=== PATIENT | female | born 1935 ===

== ENCOUNTER 2017-11-06 11:56 | Inpatient (IN) | payer MEDICARE, MEDICAID ==
[2017-11-06] MEDS ORDERED: Sodium Chloride 0.9% 1,000 ML IV STA (12:25)
[2017-11-06] MEDS ORDERED: Iohexol 240 (50 ml) PO ONE (12:25)
--- NOTE | 2017-11-06 12:48 | ED PDOC ---
HPI: Abdomen Time Seen by Provider: 11/06/17 12:13 Chief Complaint (Nursing): Flu-like Symptoms Chief Complaint (Provider): vomiting, abdominal pain, weakness History Per: Patient History/Exam Limitations: no limitations Onset/Duration Of Symptoms: Days (4) Current Symptoms Are (Timing): Still Present Context: Food Location Of Pain/Discomfort: Periumbilical Quality Of Discomfort: Sharp Associated Symptoms: Chills, Nausea, Vomiting, Diarrhea, Loss Of Appetite, Back Pain Exacerbating Factors: None Alleviating Factors: None Last Bowel Movement: Today Additional Complaint(s): 81yo female c/o mid abdominal pain, vomiting and mild diarrhea with occassional BRBPR over last 4 days. Symptoms associated w/ malaise/ gen weakness and cough, headache. Denies fever. Denies urinary symptoms, syncope of neck pain. Past Medical History Reviewed: Historical Data, Nursing Documentation, Vital Signs Vital Signs: Last Vital Signs Temp 99 F 11/06/17 12:00 Pulse 120 H 11/06/17 12:00 Resp 20 11/06/17 12:00 BP 151/91 H 11/06/17 12:00 Pulse Ox 98 11/06/17 18:28 - Medical History PMH: Anemia, Arthritis, Bronchitis, CAD, Cardia Arrhythmia, Diverticulitis, Gastritis, Hiatal Hernia, HTN, Hypercholesterolemia, Hypothyroidism, Osteoporosis, Rheumatoid Arthritis Denies: HIV, Chronic Kidney Disease - Surgical History Surgical History: Coronary Stent, Denies: Cholecystectomy - Family History Family History: States: Unknown Family Hx - Living Arrangements Living Arrangements: With Family - Social History Current smoker - smoking cessation education provided: No - Home Medications Home Medications: Ambulatory Orders Medication Instructions Recorded Atorvastatin [Lipitor] 40 mg PO DAILY 07/12/14 Carvedilol [Coreg] 12.5 mg PO Q12 07/12/14 Fenofibric Acid (Choline) 135 mg PO DAILY 07/12/14 [Trilipix] amLODIPine [Norvasc] 5 mg PO DAILY 07/12/14 Hydroxychloroquine Sulfate 200 mg PO BID 10/27/15 [Plaquenil] Isosorbide Mononitrate [Imdur] 60 mg PO DAILY 10/27/15 Pantoprazole Sodium [Protonix] 40 mg PO DAILY 01/11/16 Alendronate [Fosamax] 70 mg PO SUN 11/10/16 Allopurinol [Zyloprim] 100 mg PO DAILY 11/10/16 Brompheniramine/Pseudoephed/Dm 5 ml PO Q4H PRN 11/10/16 [Bromfed Dm Cough Syrup] Colchicine [Colcrys] 0.6 mg PO DAILY 11/10/16 Diclofenac Sodium [Voltaren] 1 appl TD QID PRN 11/10/16 Levothyroxine [Synthroid] 50 mcg PO DAILY 11/10/16 Meclizine HCl 12.5 mg PO Q8H PRN 11/10/16 Meloxicam [Mobic] 7.5 mg PO DAILY 11/10/16 Multivitamin [Multi-Vitamin Daily] 1 tab PO DAILY 11/10/16 Prednisone [Basim] 5 mg PO DAILY 11/10/16 - Allergies Allergies/Adverse Reactions: Allergies Allergy/AdvReac Type Severity Reaction Status Date / Time No Known Allergies Allergy Verified 11/06/17 12:00 Review of Systems Constitutional: Positive for: Chills, Weakness, Malaise Eyes: Negative for: Vision Change ENT: Negative for: Ear Pain, Throat Pain Cardiovascular: Negative for: Chest Pain, Palpitations Respiratory: Positive for: Cough. Negative for: Shortness of Breath Gastrointestinal: Positive for: Nausea, Vomiting, Abdominal Pain, Diarrhea, Hematochezia. Negative for: Hematemesis Genitourinary Female: Negative for: Dysuria, Frequency Musculoskeletal: Positive for: Back Pain. Negative for: Neck Pain, Leg Pain Skin: Negative for: Rash, Lesions, Jaundice Neurological: Positive for: Headache, Dizziness. Negative for: Weakness, Numbness Psych: Negative for: Depression Physical Exam - Reviewed Nursing Documentation Reviewed: Yes Vital Signs Reviewed: Yes - Physical Exam Appears: Positive for: Well, Non-toxic, No Acute Distress Head Exam: Positive for: ATRAUMATIC, NORMAL INSPECTION, NORMOCEPHALIC Skin: Positive for: Normal Color, Warm, DRY Eye Exam: Positive for: EOMI, Normal appearance, PERRL ENT: Positive for: Normal ENT Inspection Neck: Positive for: Normal, Painless ROM Cardiovascular/Chest: Positive for: Regular Rate, Rhythm Respiratory: Positive for: CNT, Normal Breath Sounds Pulses-Radial (L): 2+ Pulses-Radial (R): 2+ Gastrointestinal/Abdominal: Positive for: Bowel Sounds, Soft, Tenderness (+ tender mid abdomen) Back: Positive for: Normal Inspection Extremity: Positive for: Normal ROM Neurologic/Psych: Positive for: Alert, manufacturing engineering technologist II-XII (intact), Oriented. Negative for: Motor/Sensory Deficits - Laboratory Results Result Diagrams: 11/06/17 13:31 11/06/17 13:31 - ECG O2 Sat by Pulse Oximetry: 98 Medical Decision Making Medical Decision Making: workup for abd pain/ voimiting/ BRBPR initiated labs reviewed, persistent mildly worsened anemia WBC normal CT abd pelv Accession No. 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 COMPARISON: 01/11/2016. CT abdomen and pelvis. TECHNIQUE: Contrast dose: 75 cc Visipaque 320. Radiation dose: Total exam DLP = 725.24 mGy-cm. This CT exam was performed using one or more of the following dose reduction techniques: Automated exposure control, adjustment of the mA and/or kV according to patient size, and/or use of iterative reconstruction technique. FINDINGS: LOWER THORAX: Stable hiatal hernia. LIVER: Hepatic steatosis. No focal masses. No intrahepatic bile duct dilatation or perihepatic ascites. GALLBLADDER AND BILE DUCTS: Unremarkable. PANCREAS: Unremarkable. No gross lesion or ductal dilatation. SPLEEN: Unremarkable. ADRENALS: Unremarkable. No mass. KIDNEYS AND URETERS: Unremarkable. No hydronephrosis. No solid mass. VASCULATURE: Unremarkable. No aortic aneurysm. BOWEL: Severe pain colitis. This is better visualized in the ascending and transverse colon due to the presence of oral contrast. However the descending colon, sigmoid and rectum are also affected. In addition there is considerable diverticular disease primarily affecting the left ryan colon most notably the sigmoid region. A component of acute diverticulitis therefore should be considered as a concurrent acute inflammatory process. Anterior abdominal wall hernia containing an affected loop of transverse colon without evidence of incarceration. Similar finding was seen on the CT scan of the abdomen and pelvis 01/11/2016. APPENDIX: No abnormalities to suggest acute appendicitis. No right lower quadrant inflammatory processes identified. PERITONEUM: Unremarkable. No free fluid. No free air. LYMPH NODES: Unremarkable. No enlarged lymph nodes. BLADDER: Unremarkable. REPRODUCTIVE: Unremarkable. BONES: No acute fracture. OTHER FINDINGS: None. IMPRESSION: Severe colitis extending from the cecum to the rectum. Additional benign and/or incidental findings described above. Pt prior saw Dr Husain but patient states prefers new GI specialist. D/w Dr Dia requested Dr Mazariegos group, consult requested. Pt has appt upcoming Nov GI Dr Coleman? Cipro/flagyl IV initiated Disposition - Clinical Impression Clinical Impression: Pancolitis, Abdominal pain, Rectal bleeding - Patient ED Disposition Is Patient to be Admitted: Yes Counseled Patient/Family Regarding: Studies Performed, Diagnosis - Disposition Disposition: Routine/Home Disposition Time: 17:01 Condition: FAIR - Pt Status Changed To: Hospital Disposition Of: Inpatient - Admit Certification Admit to Inpatient:: After my assessment, the patient will require hospitalization for at least two midnights. This is because of the severity of symptoms shown, intensity of services needed, and/or the medical risk in this patient being treated as an outpatient. - POA Present On Arrival: None
[2017-11-06] MEDS ORDERED: Iohexol 240 (50 ml) ONE (13:32)
[2017-11-06 13:35] LABS: BASO % 0.5 % (0.0-2.0); EOS % 0.6 % (0.0-4.0); HEMOGLOBIN 10.4 g/dL (12.0-16.0); LYMPH # 0.9 K/uL (1.0-4.3); LYMPH % 10.7 % (20.0-40.0); MEAN CELL VOLUME 90.3 fl (81.0-99.0); MEAN CORPUSCULAR HEMOGLOBIN 29.6 pg (27.0-31.0); MEAN CORPUSCULAR HGB CONC 32.8 g/dL (33.0-37.0); MEAN PLATELET VOLUME 6.8 fl (7.2-11.7); MONO # 0.8 K/uL (0.0-0.8); MONO % 9.3 % (0.0-10.0); NEUT # 6.4 K/uL (1.8-7.0); NEUT % 78.9 % (50.0-75.0); RBC 3.52 Mil/uL (3.80-5.20); WHITE BLOOD COUNT 8.1 K/uL (4.8-10.8)
[2017-11-06 13:46] LABS: ALBUMIN 2.9 g/dL (3.5-5.0); ALT/SGPT 27 U/L (9-52); AST/SGOT 26 U/L (14-36); BLOOD UREA NITROGEN 16 mg/dl (7-17); GFR AFRICAN-AMERICAN > 60; GFR NON-AFRICAN AMERICAN 53
[2017-11-06 13:54] LABS: ALB/GLOB RATIO 0.8 (1.0-2.1)
[2017-11-06] MEDS ORDERED: Sodium Chloride 0.9% 50 ML IV ONE ×2 (13:59→16:16)
[2017-11-06] MEDS ORDERED: Iohexol 300 100 ML IJ ONE ×2 (13:59→16:16)
--- NOTE | 2017-11-06 14:12 | RAD ---
HISTORY: Cough a COMPARISON: 07/04/2017. TECHNIQUE: Chest PA and lateral FINDINGS: LUNGS: Hyperinflation, manifestations of COPD. No active pulmonary disease. PLEURA: No significant pleural effusion identified. No pneumothorax apparent. CARDIOVASCULAR: Normal. OSSEOUS STRUCTURES: No significant abnormalities. Moderate kyphosis. VISUALIZED UPPER ABDOMEN: Normal. OTHER FINDINGS: Small hiatal hernia. IMPRESSION: No active disease. No significant interval change compared to the prior examination(s).
[2017-11-06] MEDS ORDERED: Iodixanol 320 MG/ML 100 ML BOTTLE IV ONE (16:31)
--- NOTE | 2017-11-06 16:40 | CARD ---
APPROVED REPORT EKG Measurement Heart [id number] [id number] <Conclusion> Normal sinus rhythm Pulmonary disease pattern Left anterior fascicular block Left ventricular hypertrophy with QRS widening Abnormal ECG
--- NOTE | 2017-11-06 17:09 | CT ---
PROCEDURE: CT Abdomen and Pelvis with contrast HISTORY: Lower abdominal pain. COMPARISON: 01/11/2016. CT abdomen and pelvis. TECHNIQUE: Contrast dose: 75 cc Visipaque 320. Radiation dose: Total exam DLP = 725.24 mGy-cm. This CT exam was performed using one or more of the following dose reduction techniques: Automated exposure control, adjustment of the mA and/or kV according to patient size, and/or use of iterative reconstruction technique. FINDINGS: LOWER THORAX: Stable hiatal hernia. LIVER: Hepatic steatosis. No focal masses. No intrahepatic bile duct dilatation or perihepatic ascites. GALLBLADDER AND BILE DUCTS: Unremarkable. PANCREAS: Unremarkable. No gross lesion or ductal dilatation. SPLEEN: Unremarkable. ADRENALS: Unremarkable. No mass. KIDNEYS AND URETERS: Unremarkable. No hydronephrosis. No solid mass. VASCULATURE: Unremarkable. No aortic aneurysm. BOWEL: Severe pain colitis. This is better visualized in the ascending and transverse colon due to the presence of oral contrast. However the descending colon, sigmoid and rectum are also affected. In addition there is considerable diverticular disease primarily affecting the left ryan colon most notably the sigmoid region. A component of acute diverticulitis therefore should be considered as a concurrent acute inflammatory process. Anterior abdominal wall hernia containing an affected loop of transverse colon without evidence of incarceration. Similar finding was seen on the CT scan of the abdomen and pelvis 01/11/2016. APPENDIX: No abnormalities to suggest acute appendicitis. No right lower quadrant inflammatory processes identified. PERITONEUM: Unremarkable. No free fluid. No free air. LYMPH NODES: Unremarkable. No enlarged lymph nodes. BLADDER: Unremarkable. REPRODUCTIVE: Unremarkable. BONES: No acute fracture. OTHER FINDINGS: None. IMPRESSION: Severe colitis extending from the cecum to the rectum. Additional benign and/or incidental findings described above.
[2017-11-06] MEDS ORDERED: Ciprofloxacin 400mg/200ml D5W 400 MG/200 ML BAG IVPB STA (17:28)
[2017-11-06] MEDS ORDERED: Sodium Chloride 0.9% 100 ML IV STA (18:01)
[2017-11-06] MEDS ORDERED: metroNIDAZOLE 500mg/100ml NS 100 ML IVPB ONE (19:24)
[2017-11-06] MEDS ORDERED: HYDROmorphone 0.5 mg/0.5 ml ISec IVP PRN (22:48)
[2017-11-06] MEDS: Dextrose 5%/0.9% NS 1,000 ML IV SCH (23:23)
[2017-11-07] MEDS ORDERED: metroNIDAZOLE 500mg/100ml NS 100 ML IVPB SCH (01:00)
[2017-11-07] MEDS: Levothyroxine 50 MCG TAB PO SCH (07:19)
--- NOTE | 2017-11-07 07:46 | CP.PCM.CON ---
<RusselAbundio - Last Filed: 11/07/17 13:19> History of Present Illness - History of Present Illness History of Present Illness: PGY4 Initial GI Consult Note Blanquita Baez is a 82F w/ hx of CAD s/p stent?, HTN, HL, Hypothyroid, OA, and diverticulitis who presents to the ER with complaints of diarrhea, abd pain. She states that he symptoms started 3 days ago. He notes diarrhea with some formed stool and denied any mixed blood or mucus. She states that the end when she was wiping there was blood on toilet tissue. She noted abd pain location in the LLQ which started with the diarrhea. She noted that it radiated to the umbilicus. She states that the pain and diarrhea wer intermittent and returned the following day. Her symptoms gradually worsened and she presented to the ER for further evaluation. In the ER, she had a CT abd/Pelv which revealed pancolitis from the cecum to the rectum and found to have severe diverticulosis. She was started on Cipro and flagyl. She notes 3 colonoscopy in the past. Her last colonoscopy was on 01/09/17 which revealed a large polyp. She has had multiple admission in the past for diverticulitis on 01/04 and 11/07. 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 She denies any fever, chills or diaphoresis. Her last Bm was this morning but small and formed. PMHx: CAD s/p Stent, HTN. HL, hypothyroid, OA, diverticulitis PSHx: colon tumor resection, umbilical hernia repair at the age of 2 Social hx: denies smoking, etoh and illicit drug use End hx: last colonoscopy 12/2015: large tumor resection (path unknown), 2 more previous colonosocies as per pt ROS: 12-point ROS conducted, neg other than above Past Patient History - Tetanus Immunizations Tetanus Immunization: Unknown - Past Medical History & Family History Past Medical History?: Yes - Past Social History Smoking Status: Never Smoked - CARDIAC Hx Cardiac Disorders: Yes - PULMONARY Hx Bronchitis: Yes - NEUROLOGICAL Hx Neurological Disorder: Yes Hx Dizziness: Yes - HEENT Hx HEENT Problems: Yes Hx Cataracts: Yes (with surgery OU) - RENAL Hx Chronic Kidney Disease: No - ENDOCRINE/METABOLIC Hx Hypothyroidism: Yes - HEMATOLOGICAL/ONCOLOGICAL Hx Anemia: Yes Hx Human Immunodeficiency Virus (HIV): No - INTEGUMENTARY Hx Dermatological Problems: No - MUSCULOSKELETAL/RHEUMATOLOGICAL Hx Falls: No - GASTROINTESTINAL Hx Diverticulitis: Yes Hx Gastritis: Yes - GENITOURINARY/GYNECOLOGICAL Hx Genitourinary Disorders: No - PSYCHIATRIC Hx Substance Use: No - SURGICAL HISTORY Hx Cholecystectomy: No Hx Coronary Stent: Yes - ANESTHESIA Hx Anesthesia: Yes Hx Anesthesia Reactions: No Hx Malignant Hyperthermia: No Meds Allergies/Adverse Reactions: Allergies Allergy/AdvReac Type Severity Reaction Status Date / Time No Known Allergies Allergy Verified 11/06/17 12:00 - Medications Medications: Current Medications Acetaminophen (Tylenol 325mg Tab) 650 mg PO Q6 PRN PRN Reason: Fever >100.4 F Allopurinol (Zyloprim) 100 mg PO DAILY [facility] Amlodipine Besylate (Norvasc) 5 mg PO DAILY [facility] Atorvastatin Calcium (Lipitor) 40 mg PO DAILY [facility] Carvedilol (Coreg) 12.5 mg PO Q12 [facility] Colchicine (Colocrys) 0.6 mg PO DAILY [facility] Hydromorphone HCl (Dilaudid) 0.5 mg IVP PRN PRN PRN Reason: Pain, moderate (4-7) Hydroxychloroquine Sulfate (Plaquenil) 200 mg PO BID [facility] Ciprofloxacin (Cipro 400mg/200ml Dsw) 400 mg in 200 mls @ 200 mls/hr IVPB Q12 [facility] PRN Reason: Protocol Dextrose/Sodium Chloride (Dextrose 5%/0.9% Ns 1000 Ml) 1,000 mls @ 100 mls/hr IV .Q10H [facility] Stop: 11/07/17 22:47 Last Admin: 11/06/17 23:23 Dose: 100 mls/hr Metronidazole (Flagyl 500mg/100ml Ns) 100 mls @ 100 mls/hr IVPB Q8 [facility] PRN Reason: Protocol Isosorbide Mononitrate (Imdur) 60 mg PO DAILY [facility] Levothyroxine Sodium (Synthroid) 50 mcg PO DAILY@0630 [facility] Last Admin: 11/07/17 07:19 Dose: 50 mcg Multivitamins/Minerals (Therapeutic-M Tab) 1 tab PO DAILY [facility] Ondansetron HCl (Zofran Inj) 4 mg IVP Q6 PRN PRN Reason: Nausea/Vomiting Pantoprazole Sodium (Protonix Ec Tab) 40 mg PO DAILY [facility] Prednisone (Prednisone Tab) 5 mg PO DAILY [facility] Physical Exam - Constitutional Appears: Well, No Acute Distress - Head Exam Head Exam: ATRAUMATIC, NORMOCEPHALIC - Eye Exam Eye Exam: Normal appearance - ENT Exam ENT Exam: Mucous Membranes Moist, Normal Exam - Respiratory Exam Respiratory Exam: Clear to Auscultation Bilateral, NORMAL BREATHING PATTERN. absent: Rales, Rhonchi, Wheezes, Respiratory Distress - Cardiovascular Exam Cardiovascular Exam: REGULAR RHYTHM, +S1, +S2 - GI/Abdominal Exam GI & Abdominal Exam: Normal Bowel Sounds, Soft - Extremities Exam Extremities exam: Negative for: joint swelling, pedal edema - Neurological Exam Neurological exam: Alert, Oriented x3 - Psychiatric Exam Psychiatric exam: Normal Affect, Normal Mood - Skin Skin Exam: Dry, Intact, Normal Color, Warm Results - Vital Signs Recent Vital Signs: Last Vital Signs Temp 99.1 F 11/06/17 23:39 Pulse 94 H 11/06/17 23:39 Resp 18 11/06/17 23:39 BP 143/78 11/06/17 23:39 Pulse Ox 97 11/06/17 23:39 - Labs Result Diagrams: 11/07/17 09:33 11/07/17 09:33 Labs: Laboratory Results - last 24 hr 11/06/17 11/06/17 13:31 13:31 WBC 8.1 RBC 3.52 L Hgb 10.4 L Hct 31.8 L MCV 90.3 MCH 29.6 MCHC 32.8 L RDW 16.0 H Plt Count 267 MPV 6.8 L Neut % (Auto) 78.9 H Lymph % (Auto) 10.7 L [place] % (Auto) 9.3 Eos % (Auto) 0.6 Baso % (Auto) 0.5 Neut # 6.4 Lymph # 0.9 L [place] # 0.8 Eos # 0.0 Baso # 0.0 Sodium 139 Potassium 4.6 Chloride 105 Carbon Dioxide 25 Anion Gap 14 BUN 16 Creatinine 1.0 Est GFR ( Amer) > 60 Est GFR (Non-Af Amer) 53 Random Glucose 73 Calcium 9.0 Total Bilirubin 0.8 AST 26 ALT 27 Alkaline Phosphatase 91 Total Protein 6.9 Albumin 2.9 L D Globulin 3.9 Albumin/Globulin Ratio 0.8 L Assessment & Plan - Assessment and Plan (Free Text) Assessment: Blanquita Sasha is 82F w/ hx of diverticulitis, CAD s/p stents, HTN, HL who presents with diarrhea and abd pain. CT abd/Pelv revealed franco colitis from cecum to rectum, severe diverticulosis in the sigmoid. Franco colitis, Ddx: IBD,ischemic colitis, infectous, diverticulitis Abd pain likely 2/2 above Diarrhea (resolved) Hx of diverticulitis Umbical Hernia Plan: -Continue IV fluids -continue cipro and flagyl -recommend stool culture, r/o c. diff, fecal calprotectin -CT abd reviewed -Maintain MAP >65 -recommend CT angio to eval mesenteric arteries to r/o ischemic coliti -Maintain hgb > 8 -keep NPO for now will D/W Dr. Acevedo. <Marleny Acevedo MD - Last Filed: 11/07/17 14:26> Meds - Medications Medications: Current Medications Acetaminophen (Tylenol 325mg Tab) 650 mg PO Q6 PRN PRN Reason: Fever >100.4 F Allopurinol (Zyloprim) 100 mg PO DAILY [facility] Last Admin: 11/07/17 09:44 Dose: 100 mg Amlodipine Besylate (Norvasc) 5 mg PO DAILY [facility] Last Admin: 11/07/17 09:41 Dose: 5 mg Atorvastatin Calcium (Lipitor) 40 mg PO DAILY [facility] Last Admin: 11/07/17 09:44 Dose: 40 mg Carvedilol (Coreg) 12.5 mg PO Q12 [facility] Last Admin: 11/07/17 09:42 Dose: 12.5 mg Colchicine (Colocrys) 0.6 mg PO DAILY [facility] Last Admin: 11/07/17 09:41 Dose: 0.6 mg Hydromorphone HCl (Dilaudid) 0.5 mg IVP PRN PRN PRN Reason: Pain, moderate (4-7) Hydroxychloroquine Sulfate (Plaquenil) 200 mg PO BID [facility] Last Admin: 11/07/17 09:43 Dose: 200 mg Ciprofloxacin (Cipro 400mg/200ml Dsw) 400 mg in 200 mls @ 200 mls/hr IVPB Q12 [facility] PRN Reason: Protocol Last Admin: 11/07/17 09:38 Dose: 200 mls/hr Dextrose/Sodium Chloride (Dextrose 5%/0.9% Ns 1000 Ml) 1,000 mls @ 100 mls/hr IV .Q10H [facility] Stop: 11/07/17 22:47 Last Admin: 11/07/17 09:44 Dose: 100 mls/hr Metronidazole (Flagyl 500mg/100ml Ns) 100 mls @ 100 mls/hr IVPB Q8 [facility] PRN Reason: Protocol Last Admin: 11/07/17 09:39 Dose: 100 mls/hr Isosorbide Mononitrate (Imdur) 60 mg PO DAILY [facility] Last Admin: 11/07/17 09:43 Dose: 60 mg Levothyroxine Sodium (Synthroid) 50 mcg PO DAILY@0630 [facility] Last Admin: 11/07/17 07:19 Dose: 50 mcg Multivitamins/Minerals (Therapeutic-M Tab) 1 tab PO DAILY [facility] Last Admin: 11/07/17 09:41 Dose: 1 tab Ondansetron HCl (Zofran Inj) 4 mg IVP Q6 PRN PRN Reason: Nausea/Vomiting Pantoprazole Sodium (Protonix Ec Tab) 40 mg PO DAILY [facility] Last Admin: 11/07/17 09:42 Dose: 40 mg Prednisone (Prednisone Tab) 5 mg PO DAILY [facility] Last Admin: 11/07/17 09:43 Dose: 5 mg Results - Vital Signs Recent Vital Signs: Last Vital Signs Temp 98.2 F 11/07/17 08:30 Pulse 79 11/07/17 09:42 Resp 20 11/07/17 08:30 BP 145/78 11/07/17 09:42 Pulse Ox 98 11/07/17 08:30 - Labs Result Diagrams: 11/07/17 09:33 11/07/17 09:33 Labs: Laboratory Results - last 24 hr 11/07/17 11/07/17 09:33 09:33 WBC 7.2 RBC 3.34 L Hgb 10.0 L Hct 30.4 L MCV 91.0 MCH 29.9 MCHC 32.9 L RDW 16.1 H Plt Count 265 MPV 6.6 L Neut % (Auto) 75.3 H Lymph % (Auto) 11.5 L [place] % (Auto) 11.5 H Eos % (Auto) 1.4 Baso % (Auto) 0.3 Neut # 5.4 Lymph # 0.8 L [place] # 0.8 Eos # 0.1 Baso # 0.0 Sodium 140 Potassium 3.5 L Chloride 107 Carbon Dioxide 25 Anion Gap 12 BUN 14 Creatinine 0.9 Est GFR ( Amer) > 60 Est GFR (Non-Af Amer) 60 Random Glucose 90 Calcium 8.3 L Attending/Attestation - Attestation I have personally seen and examined this patient.: Yes I have fully participated in the care of the patient.: Yes I have reviewed all pertinent clinical information: Yes Notes (Text): 11/07/17 14:21 Patient seen with GI fellow at [facility]. This is a 82 yr old F w/ hx of diverticulitis, CAD s/p stents, HTN, HL who presents with diarrhea and abdominal pain. CT abd/Pelv revealed franco colitis from cecum to rectum, severe diverticulosis in the sigmoid. Previous admissions with similar complains s/p colonoscopy 2 years ago that sowed diverticulosis. Franco colitis differential may be related to ischemic etiology hence will coordinate CT angiogram. Physical exam is benign and no guarding, rebound. Will continue supportive care, send stool infectious work up and continue antibiotics. Diet as tolerated. Will follow
[2017-11-07 08:31] VITALS: RESP 20
[2017-11-07 09:38] LABS: BASO % 0.3 % (0.0-2.0); EOS # 0.1 K/uL (0.0-0.7); EOS % 1.4 % (0.0-4.0); LYMPH # 0.8 K/uL (1.0-4.3); LYMPH % 11.5 % (20.0-40.0); MEAN CORPUSCULAR HEMOGLOBIN 29.9 pg (27.0-31.0); MEAN CORPUSCULAR HGB CONC 32.9 g/dL (33.0-37.0); MEAN PLATELET VOLUME 6.6 fl (7.2-11.7); MONO # 0.8 K/uL (0.0-0.8); MONO % 11.5 % (0.0-10.0); NEUT # 5.4 K/uL (1.8-7.0); NEUT % 75.3 % (50.0-75.0); RBC 3.34 Mil/uL (3.80-5.20); RED CELL DISTRIBUTION WIDTH 16.1 % (11.5-14.5); WHITE BLOOD COUNT 7.2 K/uL (4.8-10.8)
[2017-11-07] MEDS: Ciprofloxacin 400mg/200ml D5W 400 MG/200 ML BAG IVPB SCH ×2 (09:38→21:21)
[2017-11-07] MEDS: metroNIDAZOLE 500mg/100ml NS 100 ML IVPB SCH ×2 (09:39→18:45)
[2017-11-07] MEDS: Multivitamin With Minerals Tab PO SCH (09:41)
[2017-11-07] MEDS: Pantoprazole 40 mg EC Tab PO SCH (09:42)
[2017-11-07] MEDS: Dextrose 5%/0.9% NS 1,000 ML IV SCH (09:44)
[2017-11-07 10:04] LABS: BLOOD UREA NITROGEN 14 mg/dl (7-17); CALCIUM 8.3 mg/dL (8.4-10.2); GFR AFRICAN-AMERICAN > 60; GFR NON-AFRICAN AMERICAN 60
[2017-11-07] MEDS ORDERED: Potassium Chloride 20 mEq ER Tab PO ONE (14:45)
[2017-11-07] MEDS ORDERED: Iodixanol 320 MG/ML 100 ML BOTTLE IV ONE (14:46)
[2017-11-07] MEDS ORDERED: Sodium Chloride 0.9% 50 ML IV ONE (14:46)
[2017-11-07 15:37] LABS: SQUAMOUS EPITHIAL 2 /hpf (0-5); URINE BILIRUBIN NEGATIVE (NEGATIVE); URINE BLOOD NEGATIVE (NEGATIVE); URINE CLARITY SLIGHTY-CLOUDY (Clear); URINE COLOR YELLOW (YELLOW); URINE GLUCOSE (UA) 50 mg/dL (Normal); URINE LEUKOCYTE ESTERASE NEG Leu/uL (Negative); URINE NITRATE NEGATIVE (NEGATIVE); URINE PROTEIN NEGATIVE (NEGATIVE); URINE UROBILINOGEN 0.2-1.0 mg/dL (0.2-1.0)
--- NOTE | 2017-11-07 16:49 | CT ---
PROCEDURE: CT Abdomen with and without intravenous contrast HISTORY: Severe colitis, r/o ischemic colitis COMPARISON: November 06, 2017. TECHNIQUE: Axial images of the abdomen from lung bases to iliac crest with and without intravenous contrast enhancement. Coronal and sagittal reformats generated. Oral contrast also administered. Intravenous contrast Dose: 99 cc Visipaque 320 Radiation dose: Total exam DLP = 1848.87 mGy-cm. This CT exam was performed using one or more of the following dose reduction techniques: Automated exposure control, adjustment of the mA and/or kV according to patient size, and/or use of iterative reconstruction technique. FINDINGS: LOWER THORAX: Stable hiatal hernia. LIVER: Hepatic steatosis. No focal masses. No intrahepatic bile duct dilatation or perihepatic ascites. GALLBLADDER AND BILE DUCTS: Vicarious excretion of contrast in the gallbladder. The PANCREAS: Unremarkable. No gross lesion or ductal dilatation. SPLEEN: Unremarkable. ADRENALS: Unremarkable. No mass. KIDNEYS AND URETERS: Unremarkable. No hydronephrosis. No solid mass. Residual contrast in the collecting systems on the unenhanced component. No focal abnormalities are apparent on the contrast enhanced component of this study. Patent renal arteries and veins. VASCULATURE: Unremarkable. No aortic aneurysm. Patent celiac axis, superior mesenteric artery and branch vessels. No evidence of stenosis or dissection. BOWEL: Diffuse colitis again identified without appreciable interval change. Mild dilatation of proximal small bowel consistent with ileus rather than obstruction. Diverticulosis primarily affecting sigmoid colon, a colitis also apparent in the affected sigmoid. APPENDIX: Normal appendix. PERITONEUM: Unremarkable. No free fluid. No free air. LYMPH NODES: Unremarkable. No enlarged lymph nodes. BLADDER: Unremarkable. REPRODUCTIVE: Unremarkable. BONES: No acute fracture. OTHER FINDINGS: None. IMPRESSION: Caro colitis again identified without appreciable interval change. Non aneurysmal abdominal aorta and unremarkable iliac vessels. No evidence of stenoses at the origin of the celiac axis, SMA. No evidence of thrombotic disease or occlusion of any of the major visceral branches.
[2017-11-08] MEDS: metroNIDAZOLE 500mg/100ml NS 100 ML IVPB SCH ×3 (00:07→16:28)
--- NOTE | 2017-11-08 03:53 | HP ---
HISTORY OF PRESENT ILLNESS: This is an 82-year-old female with history of multiple medical problems, presented to emergency room with symptoms of vomiting, nausea and diarrhea that has been intermittent for the last 2 weeks prior to this admission. Patient admitted also for mid abdominal pain. The patient's symptoms were associated with generalized weakness. Patient denied to have any fever or urinary symptoms. Other review of systems is negative. ALLERGIES: NO KNOWN ALLERGY. MEDICATIONS: As per MAR. PAST MEDICAL HISTORY: Positive for hypertension, osteoarthritis, gouty arthritis, hypothyroidism, atherosclerotic cardiovascular disease. SOCIAL HISTORY: No history of smoking, EtOH or substance abuse. FAMILY HISTORY: Noncontributory. PHYSICAL EXAMINATION: GENERAL: Patient is in bed, comfortable at the time of this examination. VITAL SIGNS: Blood pressure 145/78, temperature 98.2, respiratory rate 20 and pulse 79. HEENT: Pupils equal, reactive to light. Normal-appearing mucosa of the conjunctivae, oropharynx and nasal membrane mucosa. NECK: Supple. No JVD. No carotid bruit. No lymph node. No thyromegaly. CHEST AND LUNGS: Bilateral symmetrical expansion. Good air exchange. No rales, no rhonchi. CARDIOVASCULAR SYSTEM: PMI not localized. S1, S2. No additional sounds. ABDOMEN: Normoactive bowel sounds. No tenderness. No organomegaly. No masses. EXTREMITIES: No cyanosis, no clubbing, no edema. CENTRAL NERVOUS SYSTEM: Alert, awake, oriented x3. No neurological deficit could be appreciated. ASSESSMENT: 1. Pancolitis as it was shown in the computed axial tomography scan. 2. Hypertension. 3. Hypothyroidism. 4. Gouty arthritis. 5. Osteoarthritis. PLAN: Continue Cipro and Flagyl and probiotic, and GI consult and surgical consult and follow their recommendations. Discussed patient's condition with Dr. Acevedo who also ordered CT angiogram. Annita MD [place]
[2017-11-08 06:20] LABS: BLOOD UREA NITROGEN 14 mg/dl (7-17); CALCIUM 7.9 mg/dL (8.4-10.2); GFR AFRICAN-AMERICAN > 60; GFR NON-AFRICAN AMERICAN 60
[2017-11-08] MEDS: Levothyroxine 50 MCG TAB PO SCH (06:20)
[2017-11-08 08:09] LABS: BASO % 0.3 % (0.0-2.0); EOS # 0.1 K/uL (0.0-0.7); HEMOGLOBIN 8.5 g/dL (12.0-16.0); LYMPH # 0.7 K/uL (1.0-4.3); LYMPH % 9.1 % (20.0-40.0); MEAN CELL VOLUME 90.7 fl (81.0-99.0); MEAN CORPUSCULAR HEMOGLOBIN 29.9 pg (27.0-31.0); MEAN PLATELET VOLUME 7.3 fl (7.2-11.7); MONO % 13.5 % (0.0-10.0); NEUT # 5.6 K/uL (1.8-7.0); NEUT % 76.1 % (50.0-75.0); NRBC % 0.1 % (0.0-0.0); PLATELET COUNT 233 K/uL (130-400); RBC 2.85 Mil/uL (3.80-5.20); RED CELL DISTRIBUTION WIDTH 15.7 % (11.5-14.5); WHITE BLOOD COUNT 7.4 K/uL (4.8-10.8)
[2017-11-08 08:30] LABS: ALT/SGPT 26 U/L (9-52); AST/SGOT 25 U/L (14-36); BILIRUBIN,DIRECT 0.4 mg/ml (0.0-0.4)
[2017-11-08] MEDS: Multivitamin With Minerals Tab PO SCH (08:32)
[2017-11-08] MEDS: Pantoprazole 40 mg EC Tab PO SCH (08:32)
[2017-11-08 08:58] LABS: ALB/GLOB RATIO 0.6 (1.0-2.1); ALBUMIN 2.1 g/dL (3.5-5.0)
[2017-11-08] MEDS: Ciprofloxacin 400mg/200ml D5W 400 MG/200 ML BAG IVPB SCH (09:52)
--- NOTE | 2017-11-08 09:53 | CP.PCM.PN ---
<Abundio Goode - Last Filed: 11/08/17 09:54> Subjective - Date & Time of Evaluation Date of Evaluation: 11/08/17 Time of Evaluation: 09:45 - Subjective Subjective: PGY4 GI Follow-up Pt seen and examined bedside Pt had 1 BM yesterday and in the AM tolerated Liquid diet Denies any abd pain denies any fever, chills or diaphoresis No overnight events ROS: 10 point ROS conducted, neg other than above Objective - Vital Signs/Intake and Output Vital Signs (last 24 hours): Temp Pulse Resp BP Pulse Ox 99.1 F 81 20 128/75 96 11/08/17 08:45 11/08/17 08:45 11/08/17 08:45 11/08/17 08:45 11/08/17 08:45 - Medications Medications: Current Medications Acetaminophen (Tylenol 325mg Tab) 650 mg PO Q6 PRN PRN Reason: Fever >100.4 F Allopurinol (Zyloprim) 100 mg PO DAILY [facility] Last Admin: 11/08/17 08:33 Dose: 100 mg Amlodipine Besylate (Norvasc) 5 mg PO DAILY [facility] Last Admin: 11/08/17 08:32 Dose: 5 mg Atorvastatin Calcium (Lipitor) 40 mg PO DAILY [facility] Last Admin: 11/08/17 08:32 Dose: 40 mg Carvedilol (Coreg) 12.5 mg PO Q12 [facility] Last Admin: 11/08/17 08:31 Dose: 12.5 mg Colchicine (Colocrys) 0.6 mg PO DAILY [facility] Last Admin: 11/08/17 08:31 Dose: 0.6 mg Hydromorphone HCl (Dilaudid) 0.5 mg IVP PRN PRN PRN Reason: Pain, moderate (4-7) Hydroxychloroquine Sulfate (Plaquenil) 200 mg PO BID [facility] Last Admin: 11/08/17 08:32 Dose: 200 mg Ciprofloxacin (Cipro 400mg/200ml Dsw) 400 mg in 200 mls @ 200 mls/hr IVPB Q12 [facility] PRN Reason: Protocol Last Admin: 11/07/17 21:21 Dose: 200 mls/hr Metronidazole (Flagyl 500mg/100ml Ns) 100 mls @ 100 mls/hr IVPB Q8 [facility] PRN Reason: Protocol Last Admin: 11/08/17 08:31 Dose: 100 mls/hr Isosorbide Mononitrate (Imdur) 60 mg PO DAILY [facility] Last Admin: 11/08/17 08:32 Dose: 60 mg Levothyroxine Sodium (Synthroid) 50 mcg PO DAILY@0630 [facility] Last Admin: 11/08/17 06:20 Dose: 50 mcg Multivitamins/Minerals (Therapeutic-M Tab) 1 tab PO DAILY [facility] Last Admin: 11/08/17 08:32 Dose: 1 tab Ondansetron HCl (Zofran Inj) 4 mg IVP Q6 PRN PRN Reason: Nausea/Vomiting Pantoprazole Sodium (Protonix Ec Tab) 40 mg PO DAILY [facility] Last Admin: 11/08/17 08:32 Dose: 40 mg Prednisone (Prednisone Tab) 5 mg PO DAILY [facility] Last Admin: 11/08/17 08:32 Dose: 5 mg - Labs Labs: 11/08/17 08:02 11/08/17 05:40 - Constitutional Appears: Well, No Acute Distress - Head Exam Head Exam: ATRAUMATIC, NORMOCEPHALIC - Eye Exam Eye Exam: Normal appearance - ENT Exam ENT Exam: Mucous Membranes Moist - Respiratory Exam Respiratory Exam: Clear to Ausculation Bilateral, NORMAL BREATHING PATTERN. absent: Rales, Rhonchi, Wheezes, Respiratory Distress - Cardiovascular Exam Cardiovascular Exam: REGULAR RHYTHM, +S1, +S2 - GI/Abdominal Exam GI & Abdominal Exam: Soft, Normal Bowel Sounds. absent: Guarding, Rigid, Tenderness, Organomegaly - Extremities Exam Extremities Exam: absent: Joint Swelling, Pedal Edema - Neurological Exam Neurological Exam: Alert, Awake, Oriented x3 - Psychiatric Exam Psychiatric exam: Normal Affect, Normal Mood - Skin Skin Exam: Dry, Intact, Normal Color, Warm Assessment and Plan - Assessment and Plan (Free Text) Assessment: Blanquita Baez is 82F w/ hx of diverticulitis, CAD s/p stents, HTN, HL who presents with diarrhea and abd pain. CT abd/Pelv revealed franco colitis from cecum to rectum, severe diverticulosis in the sigmoid. Franco colitis, Ddx: IBD, infectous, diverticulitis Abd pain likely 2/2 above Diarrhea (resolved) Hx of diverticulitis Umbical Hernia Plan: -can transition to PO abx, cipro and flagyl, Day 2 of 10 -recommend advancing diet -no plan for any GI interventions -will need a colonoscopy as an oupt in 8 weeks -as per pt she has a GI physician, but can f/u with Dr. Acevedo if she desire, contact info given -CT Angio was neg for any mesenteric vessel occlusion or stenosis, making ischemia unlikely -can be discharged from GI standpoint -stool culture and c.diff and fecal calprotectin still pending D/W Dr. Acevedo <Marleny Acevedo MD - Last Filed: 11/08/17 10:23> Objective - Vital Signs/Intake and Output Vital Signs (last 24 hours): Temp Pulse Resp BP Pulse Ox 99.1 F 81 20 128/75 96 11/08/17 08:45 11/08/17 08:45 11/08/17 08:45 11/08/17 08:45 11/08/17 08:45 - Medications Medications: Current Medications Acetaminophen (Tylenol 325mg Tab) 650 mg PO Q6 PRN PRN Reason: Fever >100.4 F Allopurinol (Zyloprim) 100 mg PO DAILY [facility] Last Admin: 11/08/17 08:33 Dose: 100 mg Amlodipine Besylate (Norvasc) 5 mg PO DAILY [facility] Last Admin: 11/08/17 08:32 Dose: 5 mg Atorvastatin Calcium (Lipitor) 40 mg PO DAILY [facility] Last Admin: 11/08/17 08:32 Dose: 40 mg Carvedilol (Coreg) 12.5 mg PO Q12 [facility] Last Admin: 11/08/17 08:31 Dose: 12.5 mg Colchicine (Colocrys) 0.6 mg PO DAILY [facility] Last Admin: 11/08/17 08:31 Dose: 0.6 mg Hydromorphone HCl (Dilaudid) 0.5 mg IVP PRN PRN PRN Reason: Pain, moderate (4-7) Hydroxychloroquine Sulfate (Plaquenil) 200 mg PO BID [facility] Last Admin: 11/08/17 08:32 Dose: 200 mg Ciprofloxacin (Cipro 400mg/200ml Dsw) 400 mg in 200 mls @ 200 mls/hr IVPB Q12 [facility] PRN Reason: Protocol Last Admin: 11/08/17 09:52 Dose: 200 mls/hr Metronidazole (Flagyl 500mg/100ml Ns) 100 mls @ 100 mls/hr IVPB Q8 [facility] PRN Reason: Protocol Last Admin: 11/08/17 08:31 Dose: 100 mls/hr Isosorbide Mononitrate (Imdur) 60 mg PO DAILY [facility] Last Admin: 11/08/17 08:32 Dose: 60 mg Levothyroxine Sodium (Synthroid) 50 mcg PO DAILY@0630 [facility] Last Admin: 11/08/17 06:20 Dose: 50 mcg Multivitamins/Minerals (Therapeutic-M Tab) 1 tab PO DAILY [facility] Last Admin: 11/08/17 08:32 Dose: 1 tab Ondansetron HCl (Zofran Inj) 4 mg IVP Q6 PRN PRN Reason: Nausea/Vomiting Pantoprazole Sodium (Protonix Ec Tab) 40 mg PO DAILY [facility] Last Admin: 11/08/17 08:32 Dose: 40 mg Prednisone (Prednisone Tab) 5 mg PO DAILY [facility] Last Admin: 11/08/17 08:32 Dose: 5 mg - Labs Labs: 11/08/17 08:02 11/08/17 05:40 Attending/Attestation - Attestation I have personally seen and examined this patient.: Yes I have fully participated in the care of the patient.: Yes I have reviewed all pertinent clinical information, including history, physical exam and plan: Yes Notes (Text): 11/08/17 10:21 Patient seen with GI fellow at bedside. This is a 82 yr old F w/ hx of diverticulitis, CAD s/p stents, HTN, HL who presents with diarrhea and abdominal pain. CT abd/Pelv revealed franco colitis from cecum to rectum, severe diverticulosis in the sigmoid. Previous admissions with similar complains s/p colonoscopy 2 years ago that sowed diverticulosis. CT angio reuled out ischemic etiology. Diet as tolerated. Stool infectious work up pending. Physical exam is benign and no guarding, rebound. Can be discharged from GI perspective with outpatient follow up and complete 10 day po antibiotics
[2017-11-08 12:04] LABS: BANDS 8 % (0-2); EOSINOPHIL 1 % (0-7); LYMPHOCYTE 6 % (20-50); MONOCYTE 10 % (0-10); NEUTROPHIL 75 % (42-75); PLATELET ESTIMATE NORMAL (NORMAL); TOTAL CELLS COUNTED 100
[2017-11-08 12:05] LABS: ANISOCYTOSIS SLIGHT; HYPOCHROMIC SLIGHT
[2017-11-08 12:06] LABS: OVALOCYTES SLIGHT; PLATELET CLUMPS PRESENT; SCHISTOCYTES SLIGHT; TOXIC GRANULATION PRESENT
[2017-11-08 16:29] VITALS: BP 94/59; PULSE 79; TEMP 98; O2SAT 97
--- NOTE | 2017-11-09 21:52 | DS ---
REASON FOR ADMISSION: This is an 82-year-old female with history of multiple medical problems, was admitted to the emergency room for colitis and symptoms of vomiting and diarrhea. COURSE OF HOSPITALIZATION: Patient was admitted to medical floor and she had CAT scan. CT angiogram of the abdomen that ruled out any ischemic disease. Patient was started on Cipro and Flagyl and discharged on the same. The patient's symptoms improved and diet was advanced and patient was discharged home and asked to follow up with Dr. Dia, her primary care physician. FINAL DIAGNOSES: Colitis, hypothyroidism, hypertension, atherosclerotic cardiovascular disease. [facility] MD [facility]
== END 2017-11-08 18:00 | disposition home or self-care (01) | DRG 387 ==
LOC: H.ER 11:56 → H.ERHOLD 17:54 → H.MEDSURG1 21:57
PROVIDERS: ADMIT Internal Medicine; ATTEND Internal Medicine
DX: K51.00 Ulcerative (chronic) pancolitis without complications (principal); D64.9 Anemia, unspecified; E11.9 Type 2 diabetes mellitus without complications; E03.9 Hypothyroidism, unspecified; E78.00 Pure hypercholesterolemia, unspecified; K57.90 Diverticulosis of intestine, part unspecified, without perforation or abscess without bleeding; M06.9 Rheumatoid arthritis, unspecified; M10.9 Gout, unspecified; M19.90 Unspecified osteoarthritis, unspecified site; M81.0 Age-related osteoporosis without current pathological fracture; Z79.83 Long term (current) use of bisphosphonates; Z79.899 Other long term (current) drug therapy; Z95.5 Presence of coronary angioplasty implant and graft; Z98.42 Cataract extraction status, left eye; Z98.41 Cataract extraction status, right eye; J40 Bronchitis, not specified as acute or chronic; K29.70 Gastritis, unspecified, without bleeding; K44.9 Diaphragmatic hernia without obstruction or gangrene; R42 Dizziness and giddiness; I10 Essential (primary) hypertension; I25.10 Atherosclerotic heart disease of native coronary artery without angina pectoris; Z86.010 Personal history of colon polyps